=== PATIENT | female | born 1990 | race Two or more races ===

== ENCOUNTER → 2017-11-05 | Emergency (ER) | payer OTHER ==
[~2017-11-05] VITALS: Ht 167.6 cm; Wt 90.7 kg
[~2017-11-05] MED LIST: CEFADROXIL500 MG PO; INDERAL LA80 MG; LEVSIN/SL0.125 MG SL; MUCINEX1200 MG PO; PEPCID40 MG PO; PHENERGAN25 MG PO; PRENATAL CAPSU1 EACH; PROPRANOLOL HCL10 MG PO; PROPRANOLOL HCL80 M1; PROTONIX40 MG PO; TUSSI-PRES B LIQ5 ML PO; TYLENOL COLD-F240 ML PO; XOPENEX0.63 MG/3 IH
== END | disposition home or self-care (01) ==
LOC: ER 18:08
DX: T23.161A Burn of first degree of back of right hand, initial encounter (principal); X12.XXXA Contact with other hot fluids, initial encounter; Y93.89 Activity, other specified; Y92.098 Other place in other non-institutional residence as the place of occurrence of the external cause; Y99.8 Other external cause status

== ENCOUNTER 2018-09-08 12:41 | Emergency (ER) | payer OTHER ==
[~2018-09-08] VITALS: Ht 167.6 cm; Wt 90.7 kg
[2018-09-08] MEDS ORDERED: TOPROL XL100 M1 (13:40)
== END 2018-09-08 18:08 | disposition home or self-care (01) ==
LOC: ER 12:41
DX: R42 Dizziness and giddiness (principal)

== ENCOUNTER 2019-03-07 12:42 | Emergency (ER) | payer OTHER ==
[~2019-03-07] VITALS: Ht 167.6 cm; Wt 86.2 kg
[~2019-03-07 12:42] MED LIST changes: +TOPROL XL100 M1
[2019-03-07] MEDS ORDERED: TOPROL XL100 M1 PO (16:33)
== END 2019-03-07 18:28 | disposition home or self-care (01) ==
LOC: ER 12:42
DX: R00.2 Palpitations (principal)

== ENCOUNTER 2020-06-11 09:42 | Emergency (ER) | payer OTHER ==
[~2020-06-11] VITALS: Ht 167.6 cm; Wt 69.9 kg
[~2020-06-11 09:42] MED LIST changes: +TOPROL XL100 M1 PO
[2020-06-11] MEDS ORDERED: ZYRTEC10 M3 PO (12:50)
[2020-06-11] MEDS ORDERED: MAXITROL EYE DRO5 ML OP (12:50)
== END 2020-06-11 13:02 | disposition home or self-care (01) ==
LOC: ER 09:42
DX: H02.841 Edema of right upper eyelid (principal); H02.842 Edema of right lower eyelid; Z20.828 Contact with and (suspected) exposure to other viral communicable diseases

== ENCOUNTER 2022-09-07 12:58 | Emergency (ER) | payer OTHER ==
[~2022-09-07] VITALS: Ht 167.6 cm; Wt 70.3 kg
[~2022-09-07 12:58] MED LIST changes: +MAXITROL EYE DRO5 ML OP; +ZYRTEC10 M3 PO
== END 2022-09-07 22:37 | disposition home or self-care (01) ==
LOC: ER 12:58
DX: K52.9 Noninfective gastroenteritis and colitis, unspecified (principal)

== ENCOUNTER 2023-05-05 17:09 | Emergency (ER) | payer OTHER ==
[~2023-05-05] VITALS: Ht 167.6 cm; Wt 72.6 kg
== END 2023-05-05 22:15 | disposition home or self-care (01) ==
LOC: ER 17:09
DX: R07.9 Chest pain, unspecified (principal); Z88.2 Allergy status to sulfonamides; M94.0 Chondrocostal junction syndrome [Tietze]; I38 Endocarditis, valve unspecified

== ENCOUNTER 2023-09-03 12:07 | Emergency (ER) | payer OTHER ==
[~2023-09-03] VITALS: Ht 167.6 cm; Wt 72.6 kg
[2023-09-03 16:08] LABS: HEMATOCRIT 34.3 % (36.0-45.00); HEMOGLOBIN 10.6 g/dL (12.0-15.00); MEAN CELL VOLUME 70.2 fL (80.00-100.00); MEAN CORPUSCULAR HEMOGLOBIN 21.7 pg (27.00-32.0); MEAN CORPUSCULAR HGB CONC 30.9 g/dl (32.0-36.0); PLATELET COUNT 299 K/uL (150-450); RED BLOOD COUNT 4.88 M/uL (4.00-6.00); RED CELL DISTRIBUTION WIDTH 16.9 % (11.5-14.5)
[2023-09-03 16:29] LABS: CALCIUM 8.9 mg/dL (8.5-10.1); CREATININE SERUM 0.64 mg/dL (0.55-1.02); GFR 106.87; MAGNESIUM 1.9 mg/dL (1.8-2.4); POTASSIUM 3.77 mEq/L (3.5-5.1)
== END 2023-09-03 17:49 | disposition home or self-care (01) ==
LOC: ER 12:07
PROVIDERS: General Practice
DX: H81.10 Benign paroxysmal vertigo, unspecified ear (principal); Z88.2 Allergy status to sulfonamides